=== PATIENT | female | born 1955 | race Caucasian/White ===

== ENCOUNTER 2016-08-17 15:54 | Emergency (ER) | payer OTHER ==
[2016-08-17 15:58] VITALS: PULSE 87; TEMP 98.1; BMI 21.6
[2016-08-17 16:14] VITALS: BP 148/99
--- NOTE | 2016-08-17 17:46 | PDOC ---
[id number] No Limitations - History of Present Illness Initial Comments: 08/17/16 18:30 The patient is a 60 year old female, with a significant past medical history of a heart murmur and sciatica, who presents to the emergency department with left knee pain about 2 weeks. The patient reports she slipped and fell while at work landing on her left side injuring her left knee and left hip. She reports that her left knee often radiates down her left leg into her foot resulting in LLE numbness and tingling. She report taking advil at 12:30pm with no alleviation. She reports her pain is often made worse with weight bearing activity, like stair climbing/descending. She denies chest pain and shortness of breath. She denies fever, chills, headache and dizziness. She denies nausea, vomit, diarrhea and constipation. She denies dysuria, frequency, urgency and hematuria. Allergies: NKDA Past surgical history: denies Social history: denies EtOH use, tobacco use, drug use PCP: <Joaquim Mccabe - Last Filed: 08/17/16 18:30> <Renny Hooper - Last Filed: 08/22/16 08:34> - General Chief Complaint: Injury Stated Complaint: LEFT KNEE, HIP PAIN Time Seen by Provider: 08/17/16 17:41 Past History <Joaquim Mccabe - Last Filed: 08/17/16 18:30> - Past Medical History Anemia: (OCCASIONAL BRONCHITIS WITH WHEEZING) Asthma: No Cancer: No Cardiac Disorders: Yes (HEART MURMUR) CVA: No COPD: No CHF: No Dementia: No Diabetes: No GI Disorders: Yes (bloating/epigastric pain) Disorders: No HTN: No Hypercholesterolemia: No Liver Disease: No Seizures: No Thyroid Disease: No - Surgical History Abdominal Surgery: No Appendectomy: No Cardiac Surgery: No Cholecystectomy: No Lung Surgery: No Neurologic Surgery: No Orthopedic Surgery: No - Psycho/Social/Smoking Cessation Hx Anxiety: No Suicidal Ideation: No Smoking History: Current some day smoker Have you smoked in the past 12 months: Yes Number of Cigarettes Smoked Daily: 10 Information on smoking cessation initiated: Yes 'Breaking Loose' booklet given: 08/17/16 Hx Alcohol Use: Yes (OCCASIONAL WINE) Drug/Substance Use Hx: No Substance Use Type: Alcohol Hx Substance Use Treatment: No <Renny Hooper - Last Filed: 08/22/16 08:34> - Past Medical History Allergies/Adverse Reactions: Allergies Allergy/AdvReac Type Severity Reaction Status Date / Time shellfish derived Allergy Intermediate Hives Verified 08/17/16 15:55 Trauma Specific PMHX - Complaint Specific PMHX Arthritis: No Back Injury: Yes Neck Injury: No Hx Sacro Iliac Joint Dysfunction: No <Renny Hooper - Last Filed: 08/22/16 08:34> Review of Systems - Review of Systems Able to Perform ROS?: Yes Comments:: 08/17/16 18:31 CONSTITUTIONAL: Absent: fever, chills, diaphoresis, generalized weakness, malaise, loss of appetite HEENT: Absent: rhinorrhea, nasal congestion, throat pain, throat swelling, difficulty swallowing, mouth swelling, ear pain, eye pain, visual Changes CARDIOVASCULAR: Absent: chest pain, syncope, palpitations, irregular heart rate, lightheadedness , peripheral edema RESPIRATORY: Absent: cough, shortness of breath, dyspnea with exertion, orthopnea, wheezing, stridor, hemoptysis GASTROINTESTINAL: Absent: abdominal pain, abdominal distension, nausea, vomiting, diarrhea, constipation, melena, hematochezia GENITOURINARY: Absent: dysuria, frequency, urgency, hesitancy, hematuria, flank pain, genital pain MUSCULOSKELETAL: Present: Left knee pain. Absent: myalgia, arthralgia, joint swelling SKIN: Absent: rash, itching, pallor HEMATOLOGIC/IMMUNOLOGIC: Absent: easy bleeding, easy bruising, lymphadenopathy, frequent infections ENDOCRINE: Absent: unexplained weight gain, unexplained weight loss, heat intolerance, cold intolerance NEUROLOGIC: Absent: headache, focal weakness or paresthesias, dizziness, unsteady gait, seizure, mental status changes, bladder or bowel incontinence PSYCHIATRIC: Absent: anxiety, depression, suicidal or homicidal ideation, hallucinations. <Joaquim Mccabe - Last Filed: 08/17/16 18:30> *Physical Exam - Vital Signs Last Vital Signs Temp Pulse Resp BP Pulse Ox 98.1 F 87 18 148/99 99 08/17/16 15:55 08/17/16 15:55 08/17/16 15:55 08/17/16 15:55 08/17/16 15:55 <Joaquim Mccabe - Last Filed: 08/17/16 18:30> - Vital Signs Last Vital Signs Temp Pulse Resp BP Pulse Ox 98.1 F 87 18 148/99 99 08/17/16 15:55 08/17/16 15:55 08/17/16 15:55 08/17/16 15:55 08/17/16 15:55 <Renny Hooper - Last Filed: 08/22/16 08:34> Medical Decision Making - Medical Decision Making 08/22/16 08:33 Exam shows no abnormalities. Other than mild synovial thickening of the left knee. There are no demonstrable sensory or motor deficits and gait is stable and unimpaired. Probable mild arthritis of the left knee. X-rays negative. X-ray of hip is negative as well. Adiel bandage applied. Rest ice elevation and anti-inflammatory. Orthopedic follow -up as directed. Patient fully ambulatory and in no significant pain or distress upon discharge to follow up as directed <Renny Hooper - Last Filed: 08/22/16 08:34> *DC/Admit/Observation/Transfer - Attestations Scribe Attestion: 08/17/16 17:46 Documentation prepared by Joaquim Mccabe, acting as medical collections specialist for Renny Milner MD. <Joaquim Mccabe - Last Filed: 08/17/16 18:30> - Discharge Dispostion Admit: No <Renny Hooper - Last Filed: 08/22/16 08:34> Diagnosis at time of Disposition: Knee strain Qualifiers: Encounter type: initial encounter Laterality: left Qualified Code(s): S86.912A - Strain of unspecified muscle(s) and tendon(s) at lower leg level, left leg, initial encounter - Discharge Dispostion Disposition: HOME Condition at time of disposition: Stable - Referrals Referrals: Pa Kincaid MD [Primary Care Provider] - 1 week - Patient Instructions Printed Discharge Instructions: DI for Knee Sprain Additional Instructions: Rest, ice, Advil, Adiel bandage. Avoid prolonged standing or walking. See orthopedist for further evaluation and treatment if no improvement - Post Discharge Activity Work/School Note: Back to Work
== END 2016-08-17 18:56 | disposition home or self-care (01) ==
LOC: FER 15:54
DX: S86.912A Strain of unspecified muscle(s) and tendon(s) at lower leg level, left leg, initial encounter (principal); W18.39XA Other fall on same level, initial encounter; Y93.9 Activity, unspecified; Y92.9 Unspecified place or not applicable; Y99.0 Civilian activity done for income or pay; R01.1 Cardiac murmur, unspecified; R10.13 Epigastric pain; F17.210 Nicotine dependence, cigarettes, uncomplicated
CPT/HCPCS: 73523-TC; 73560-TC-LT; 99283-25

== ENCOUNTER 2017-06-11 23:37 | Emergency (ER) | payer OTHER ==
--- NOTE | 2017-06-11 23:43 | PDOC ---
History of Present Illness - General Chief Complaint: Respiratory Stated Complaint: COUGH,CHILLS BODY ACHES Time Seen by Provider: 06/11/17 23:40 History Source: Patient Exam Limitations: No Limitations - History of Present Illness Initial Comments: 06/12/17 00:06 61y F hx of arthritis presents with complaint of cough. Pt states that since yesterday, she has been having some nasal congestion (clearish), feeling cold, L ear pain, cough productive of whitish sputum. She also endorses feeling generally weak and achy. She denies any recent travel, fevers, leg swelling, cp , abd pain, n/v. Past History - Past Medical History Allergies/Adverse Reactions: Allergies Allergy/AdvReac Type Severity Reaction Status Date / Time shellfish derived Allergy Intermediate Hives Verified 06/11/17 23:38 Home Medications: Ambulatory Orders Oseltamivir Phosphate [Tamiflu -] 75 mg PO BID #9 capsule 06/12/17 Anemia: (OCCASIONAL BRONCHITIS WITH WHEEZING) Asthma: No Cancer: No Cardiac Disorders: Yes (HEART MURMUR) CVA: No COPD: No CHF: No Dementia: No Diabetes: No GI Disorders: Yes (bloating/epigastric pain) Disorders: No HTN: No Hypercholesterolemia: No Liver Disease: No Seizures: No Thyroid Disease: No - Surgical History Abdominal Surgery: No Appendectomy: No Cardiac Surgery: No Cholecystectomy: No Lung Surgery: No Neurologic Surgery: No Orthopedic Surgery: No - Suicide/Smoking/Psychosocial Hx Smoking History: Current some day smoker Have you smoked in the past 12 months: Yes Number of Cigarettes Smoked Daily: 10 'Breaking Loose' booklet given: 08/17/16 Hx Alcohol Use: Yes (OCCASIONAL WINE) Drug/Substance Use Hx: No Substance Use Type: Alcohol Hx Substance Use Treatment: No Review of Systems - Review of Systems Able to Perform ROS?: Yes Comments:: 06/12/17 00:07 Constitutional - no reported Fever, Chills, HEENT: +congestion/L ear pain no reported vision changes, sore throat Respiratory: +cough, no reported sob, hemoptysis Cardiac: no reported chest pain, palpitations, light headedness, leg swelling Abd/GI: no reported abd pain, nausea, vomiting, blood per rectum, melena, diarrhea : no reported dysuria, frequency, discharge Musculskelatal - no reported back pain, joint swelling skin - no reported bruising, erythema, rash neurological: no reported headache, numbness, focal weakness, tingling, ataxia, hematologic: no reported anemia, easy bruising, easy bleeding *Physical Exam - Physical Exam Comments: 06/12/17 00:11 GENERAL: The patient is awake, alert, and fully oriented, Nontoxic - in no acute distress. HEAD: Normocephalic, atraumatic. EYES: extraocular movements intact, sclera anicteric, conjunctiva clear. ENT: Normal voice, Moist mucous membranes.posterior pharynx clear, TMs clear b/ l w/o erythema NECK: Normal range of motion, supple without signs of meningismus LUNGS: Breath sounds equal, clear to auscultation bilaterally. No wheezes, no rhonchi, no rales. HEART: Regular rate and rhythm, normal S1 and S2 without murmur, rub or gallop. ABDOMEN: Soft, nontender, normoactive bowel sounds. No guarding, no rebound. . No CVA tenderness EXTREMITIES: Normal range of motion, no edema. No clubbing or cyanosis. No cords, erythema, or tenderness. NEUROLOGICAL: No facial assymetry, Normal speech, PSYCH: Normal mood, normal affect. SKIN: Warm, Dry, normal turgor, Medical Decision Making - Medical Decision Making 06/12/17 00:12 suspect flu vs viral syndrome will give tamiflu and motrin will dc the pt with pmd fu return precautions were discussed will dc the pt to fu with dr kincaid as outpatient. I discussed the physical exam findings, ancillary test results and final diagnoses with the patient. I answered all of the patient's questions. The patient was satisfied with the care received and felt comfortable with the discharge plan and treatment plan. The patient will call their primary care physician within 24 hours to arrange follow-up and will return to the Emergency Department with any new, persistent or worsening symptoms. *DC/Admit/Observation/Transfer Diagnosis at time of Disposition: Flu-like symptoms - Discharge Dispostion Disposition: HOME Condition at time of disposition: Stable Admit: No - Prescriptions Prescriptions: Oseltamivir Phosphate [Tamiflu -] 75 mg PO BID #9 capsule - Referrals Referrals: Pa Kincaid MD [Primary Care Provider] - - Patient Instructions Printed Discharge Instructions: DI for Viral Syndrome Additional Instructions: Return to the emergency department immediately with ANY new, persistent or worsening symptoms including any shortness of breath, chest pain or other concerns. Take ibuprofen or tylenol for body aches. Take tamiflu as prescribed. You MUST call and follow up with your doctor in 2-3 days for further evaluation of your symptoms. Results were discussed with you. Please make sure your doctor reviews the results of your emergency evaluation. Print Language: [place]ET[place]ESE
[2017-06-11 23:48] VITALS: BP 156/90; PULSE 92; TEMP 100; BMI 26.5
[2017-06-12] MEDS ORDERED: OSELTAMIVIR PHOSPHATE 75 MG CAPSULE PO ONE (00:02)
[2017-06-12] MEDS ORDERED: IBUPROFEN 400 MG TABLET (FP) PO ONE ×2 (00:02→00:08)
[2017-06-12] MEDS ORDERED: OSELTAMIVIR PHOSPHATE 75 MG CAPSULE ONE (00:09)
== END 2017-06-12 00:17 | disposition home or self-care (01) ==
LOC: FER 23:37
DX: J11.1 Influenza due to unidentified influenza virus with other respiratory manifestations (principal); F17.210 Nicotine dependence, cigarettes, uncomplicated
CPT/HCPCS: 99281-25

== ENCOUNTER 2017-06-30 12:54 | Emergency (ER) | payer OTHER ==
[2017-06-30 13:00] VITALS: BP 157/96; PULSE 80; TEMP 98.4; BMI 26.5
--- NOTE | 2017-06-30 13:21 | PDOC ---
History of Present Illness - General Chief Complaint: Eye Problem Stated Complaint: REDNESS TO RIGHT LOWER EYE LID Time Seen by Provider: 06/30/17 12:57 History Source: Patient Exam Limitations: No Limitations - History of Present Illness Initial Comments: 61 yo F presents with R lower eyelid swelling x2 days. She states that it started with pain, then she noticed mild swelling. Now the swelling has spread to just above her cheek. She notes some swelling to the same. No fever. No drainage from the eye, no redness of the eye itself. No crusting. Denies prior similar symptoms. Her sister placed allergy drops yesterday without relief. Past History - Past Medical History Allergies/Adverse Reactions: Allergies Allergy/AdvReac Type Severity Reaction Status Date / Time iodine Allergy Intermediate Hives Verified 06/30/17 12:56 shellfish derived Allergy Intermediate Hives Verified 06/11/17 23:38 Home Medications: Ambulatory Orders Cephalexin Monohydrate [Keflex -] 500 mg PO BID #14 capsule 06/30/17 Anemia: (OCCASIONAL BRONCHITIS WITH WHEEZING) Asthma: No Cancer: No Cardiac Disorders: Yes (HEART MURMUR) CVA: No COPD: No CHF: No Dementia: No Diabetes: No GI Disorders: Yes (bloating/epigastric pain) Disorders: No HTN: No Hypercholesterolemia: No Liver Disease: No Seizures: No Thyroid Disease: No - Surgical History Abdominal Surgery: No Appendectomy: No Cardiac Surgery: No Cholecystectomy: No Lung Surgery: No Neurologic Surgery: No Orthopedic Surgery: No - Suicide/Smoking/Psychosocial Hx Smoking History: Current every day smoker Have you smoked in the past 12 months: Yes Number of Cigarettes Smoked Daily: 20 Information on smoking cessation initiated: Yes 'Breaking Loose' booklet given: 08/17/16 Hx Alcohol Use: No Drug/Substance Use Hx: No Substance Use Type: Alcohol Hx Substance Use Treatment: No Review of Systems - Review of Systems Able to Perform ROS?: Yes Comments:: GENERAL/CONSTITUTIONAL: No fever or chills. No weakness. HEAD, EYES, EARS, NOSE AND THROAT: No change in vision. No ear pain or discharge. No sore throat. +R lower eyelid swelling. SKIN: No rash ALLERGIC/IMMUNOLOGIC: No hives or skin allergy. *Physical Exam - Vital Signs Last Vital Signs Temp Pulse Resp BP Pulse Ox 98.4 F 80 16 157/96 100 06/30/17 12:55 06/30/17 12:55 06/30/17 12:55 06/30/17 12:55 06/30/17 12:55 - Physical Exam Comments: GENERAL: Awake, alert, and fully oriented, in no acute distress HEAD: No signs of trauma EYES: PERRLA, EOMI, sclera anicteric, conjunctiva clear. R lower lid with mild swelling that extends to just above the cheek. Mucosal surface of the R lower lid +chalazion. ENT: Auricles normal inspection, hearing grossly normal, nares patent, oropharynx clear without exudates. Moist mucosa SKIN: Warm, Dry, normal turgor, no rashes or lesions noted. Medical Decision Making - Medical Decision Making 06/30/17 13:32 Swelling to the lower lid extending to the cheek, with mild erythema. Will treat with warm compresses and keflex. Ophtho f/u. *DC/Admit/Observation/Transfer Diagnosis at time of Disposition: Chalazion of right lower eyelid - Discharge Dispostion Disposition: HOME Condition at time of disposition: Stable Admit: No - Prescriptions Prescriptions: Cephalexin Monohydrate [Keflex -] 500 mg PO BID #14 capsule - Referrals - Patient Instructions Printed Discharge Instructions: DI for Chalazion, Smoking Cessation Additional Instructions: Use warm compress as directed- Heat a piece of potato in the microwave. Wrap in paper towel, then apply to the outside of the lower lid for 10-15 minutes, 4 times per day. - Post Discharge Activity
[2017-06-30] MEDS ORDERED: CEPHALEXIN MONOHYDRATE 500 MG CAPSULE (UD) PO ONE (13:24)
[2017-06-30] MEDS ORDERED: CEPHALEXIN MONOHYDRATE 500 MG CAPSULE (UD) ONE (13:35)
[2017-06-30] MEDS ORDERED: RANITIDINE HCL 150 MG TABLET (FP) PO ONE (13:46)
== END 2017-06-30 13:52 | disposition home or self-care (01) ==
LOC: FER 12:54
DX: H00.12 Chalazion right lower eyelid (principal); F17.210 Nicotine dependence, cigarettes, uncomplicated; Z91.048 Other nonmedicinal substance allergy status; Z91.013 Allergy to seafood
CPT/HCPCS: 99281-25

== ENCOUNTER 2018-01-08 16:50 | Emergency (ER) | payer OTHER ==
--- NOTE | 2018-01-08 16:59 | PDOC ---
History of Present Illness - General History Source: Patient Exam Limitations: No Limitations - History of Present Illness Initial Comments: 01/08/18 17:32 The patient is a 62 year old female with a significant past medical history of arthritis who presents to the ED, sent by PCP, for progressively worsening left groin pain for one week. Patients PCP sent the Patient to the ED to have a pelvic ultrasound performed. Patient notes she recently had an abdominal ultrasound earlier today. Patient reports intermittent left groin pain for several years. She states she had an abdomen ultrasound performed 2 years ago to rule out hernia and it came back normal. 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 Denies fever or chills. Denies nausea or vomiting. Denies chest pain or shortness of breath. Denies any other symptoms. PCP: Dr. Mcgovern <Pia Cortez - Last Filed: 01/08/18 17:32> <Alessio Duckworth - Last Filed: 01/08/18 18:07> - General Chief Complaint: Pain Stated Complaint: SENT TO ER FOR ULTRASOUND LEFT GROIN Time Seen by Provider: 01/08/18 16:58 Past History <Pia Cortez - Last Filed: 01/08/18 17:32> - Past Medical History Anemia: (OCCASIONAL BRONCHITIS WITH WHEEZING) Asthma: No Cancer: No Cardiac Disorders: Yes (HEART MURMUR) CVA: No COPD: No CHF: No Dementia: No Diabetes: No GI Disorders: Yes (bloating/epigastric pain) Disorders: No HTN: No Hypercholesterolemia: No Liver Disease: No Seizures: No Thyroid Disease: No - Surgical History Abdominal Surgery: No Appendectomy: No Cardiac Surgery: No Cholecystectomy: No Lung Surgery: No Neurologic Surgery: No Orthopedic Surgery: No - Suicide/Smoking/Psychosocial Hx Smoking History: Current every day smoker Have you smoked in the past 12 months: Yes Number of Cigarettes Smoked Daily: 20 'Breaking Loose' booklet given: 08/17/16 Hx Alcohol Use: No Drug/Substance Use Hx: No Substance Use Type: Alcohol Hx Substance Use Treatment: No <Alessio Duckworth - Last Filed: 01/08/18 18:07> - Past Medical History Allergies/Adverse Reactions: Allergies Allergy/AdvReac Type Severity Reaction Status Date / Time iodine Allergy Intermediate Hives Verified 01/08/18 16:53 shellfish derived Allergy Intermediate Hives Verified 01/08/18 16:53 Review of Systems - Review of Systems Able to Perform ROS?: Yes Comments:: 01/08/18 17:33 A complete review of 10 out of 10 review of systems is taken and is negative apart from what is previously mentioned below and in the HPI. <Pia Cortez - Last Filed: 01/08/18 17:32> *Physical Exam - Vital Signs Last Vital Signs Temp Pulse Resp BP Pulse Ox 97.4 F L 52 L 18 189/88 100 01/08/18 16:52 01/08/18 16:52 01/08/18 16:52 01/08/18 16:52 01/08/18 16:52 - Physical Exam Comments: 01/08/18 17:33 Vitals: Triage Vital signs reviewed General Appearance: no acute distress, well nourished well developed, Neck: Supple;No Nuchal rigidity Chest Wall: Nontender Cardiac: Regular rate and rhythm, no murmurs, no rubs, no gallops, Lungs: Clear to auscultation bilateral, good air movement bilaterally, Abdomen: mild bulge with cough, left ingunal region Soft, nondistended, normal bowel sounds, nontender to palpation Extremities: Full range of motion to all extremities, no cyanosis, clubbing, or edema Skin: Warm and dry, no rashes or lesions, no petechiae Psych: normal mood, normal affect <Pia Cortez - Last Filed: 01/08/18 17:32> Medical Decision Making - Medical Decision Making 01/08/18 17:33 The patient is a 62 year old female with a significant past medical history of arthritis who presents to the ED, sent by PCP, for left lower quadrant pain for 2 years. Will order a Pelvic US. <Pia Cortez - Last Filed: 01/08/18 17:32> - Medical Decision Making 01/08/18 18:07 Inguinal pain chronic several years worse after heavy lifting no obvious hernia on examination no obvious hernia on ultrasound official report pending. Patient will follow-up with surgery either tomorrow or next Sunday Findings, the need for follow-up and strict return instructions discussed with patient. <Alessio Duckworth - Last Filed: 01/08/18 18:07> *DC/Admit/Observation/Transfer - Attestations Scribe Attestion: 01/08/18 17:34 Documentation prepared by Pia Cortez, acting as claim review medical director for Alessio Duckworth MD <Pia Cortez - Last Filed: 01/08/18 17:32> - Discharge Dispostion Decision to Admit order: No <Alessio Duckworth - Last Filed: 01/08/18 18:07> Diagnosis at time of Disposition: Inguinal pain Qualifiers: Laterality: left Qualified Code(s): R10.32 - Left lower quadrant pain - Discharge Dispostion Condition at time of disposition: Stable - Referrals Referrals: Torsten Baca MD [Staff Physician] - - Patient Instructions Additional Instructions: Follow-up with Dr. Baca as scheduled. Please return to the emergency department for any severe persistent pain especially facility with fever vomiting or for any concerns. Follow-up with her primary care provider this week as well.
[2018-01-08 17:19] VITALS: BP 189/88; PULSE 52; TEMP 97.4; BMI 26.5
== END 2018-01-08 18:12 | disposition home or self-care (01) ==
LOC: FER 16:50
DX: R10.32 Left lower quadrant pain (principal); M19.90 Unspecified osteoarthritis, unspecified site; R01.1 Cardiac murmur, unspecified; F17.210 Nicotine dependence, cigarettes, uncomplicated
CPT/HCPCS: 76705; 99282-25

== ENCOUNTER 2018-04-27 13:34 | Emergency (ER) | payer OTHER ==
[2018-04-27] MEDS ORDERED: ALBUTEROL SO4 2.5/IPRATROPIUM 0.5 INH SOL 3 ML VIAL.NEB. NEB ONE ×2 (14:06→14:27)
--- NOTE | 2018-04-27 14:06 | PDOC ---
History of Present Illness - General Chief Complaint: Cold Symptoms Stated Complaint: COUGH Time Seen by Provider: 04/27/18 13:44 History Source: Patient Exam Limitations: No Limitations - History of Present Illness Initial Comments: 62 yo F presents with cough, chest discomfort for past week. She originally felt sinus pressure, now with cough that worsens with deep breath. +Subjective fever/chills. No leg swelling. No recent travel. Pt smokes daily. Past History - Past Medical History Allergies/Adverse Reactions: Allergies Allergy/AdvReac Type Severity Reaction Status Date / Time iodine Allergy Intermediate Hives Verified 04/27/18 13:36 shellfish derived Allergy Intermediate Hives Verified 04/27/18 13:36 Home Medications: Ambulatory Orders Azithromycin [Zithromax 250mg Tablets -] 250 mg PO UTDICT #6 tab 04/27/18 Asthma: No Cancer: No Cardiac Disorders: Yes (HEART MURMUR) CVA: No COPD: No CHF: No Dementia: No Diabetes: No GI Disorders: Yes (bloating/epigastric pain) Disorders: No HTN: No Hypercholesterolemia: No Liver Disease: No Seizures: No Thyroid Disease: No - Surgical History Abdominal Surgery: No Appendectomy: No Cardiac Surgery: No Cholecystectomy: No Lung Surgery: No Neurologic Surgery: No Orthopedic Surgery: No - Suicide/Smoking/Psychosocial Hx Smoking History: Current every day smoker Have you smoked in the past 12 months: Yes Number of Cigarettes Smoked Daily: 20 'Breaking Loose' booklet given: 08/17/16 Hx Alcohol Use: No Drug/Substance Use Hx: No Substance Use Type: Alcohol Hx Substance Use Treatment: No Review of Systems - Review of Systems Able to Perform ROS?: Yes Comments:: GENERAL/CONSTITUTIONAL: No fever or chills. No weakness. HEAD, EYES, EARS, NOSE AND THROAT: No change in vision. No ear pain or discharge. No sore throat. CARDIOVASCULAR: No chest pain or shortness of breath. RESPIRATORY: +Cough. No wheezing or hemoptysis. GASTROINTESTINAL: No nausea, vomiting, diarrhea or constipation. GENITOURINARY: No dysuria, frequency, or change in urination. MUSCULOSKELETAL: No joint or muscle swelling or pain. No neck or back pain. SKIN: No rash NEUROLOGIC: No headache, vertigo, loss of consciousness, or change in strength/ sensation. ENDOCRINE: No increased thirst. No abnormal weight change. HEMATOLOGIC/LYMPHATIC: No anemia, easy bleeding, or history of blood clots. ALLERGIC/IMMUNOLOGIC: No hives or skin allergy. *Physical Exam - Physical Exam Comments: GENERAL: Awake, alert, and fully oriented, in no acute distress HEAD: No signs of trauma EYES: PERRLA, EOMI, sclera anicteric, conjunctiva clear ENT: Auricles normal inspection, hearing grossly normal, nares patent, oropharynx clear without exudates. Moist mucosa NECK: Normal ROM, supple, no lymphadenopathy, JVD, or masses LUNGS: Breath sounds equal, good air entry B/L. +Scattered rhonchi B/L. Intermittent hacking cough. HEART: Regular rate and rhythm, normal S1 and S2, no murmurs, rubs or gallops ABDOMEN: Soft, nontender, normoactive bowel sounds. No guarding, no rebound. No masses EXTREMITIES: Normal range of motion, no edema. No clubbing or cyanosis. No cords, erythema, or tenderness NEUROLOGICAL: Cranial nerves II through XII grossly intact. Normal speech, normal gait SKIN: Warm, Dry, normal turgor, no rashes or lesions noted. Medical Decision Making - Medical Decision Making Will treat with azithromycin as patient is an active smoker. *DC/Admit/Observation/Transfer Diagnosis at time of Disposition: Bronchitis - Discharge Dispostion Disposition: HOME Condition at time of disposition: Stable Decision to Admit order: No - Prescriptions Prescriptions: Azithromycin [Zithromax 250mg Tablets -] 250 mg PO UTDICT #6 tab - Referrals - Patient Instructions Printed Discharge Instructions: DI for Acute Bronchitis - Post Discharge Activity
[2018-04-27 14:35] VITALS: BP 150/95; PULSE 71; TEMP 98.3; BMI 27.4
== END 2018-04-27 15:17 | disposition home or self-care (01) ==
LOC: FER 13:34
PROC: 3E0F7GC Introduction of Other Therapeutic Substance into Respiratory Tract, Via Natural or Artificial Opening (ICD-10-PCS; principal; 2018-04-27)
DX: J40 Bronchitis, not specified as acute or chronic (principal)
CPT/HCPCS: 94640; 99282-25; J7620

== ENCOUNTER 2018-09-20 15:02 | Emergency (ER) | payer OTHER ==
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
[2018-09-20 15:16] VITALS: BP 150/89; PULSE 75; TEMP 98.1; BMI 27.4
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
== END 2018-09-20 16:23 | disposition home or self-care (01) ==
LOC: FER 15:02
DX: M79.603 Pain in arm, unspecified (principal); M54.2 Cervicalgia; G89.29 Other chronic pain; R20.2 Paresthesia of skin; K21.9 Gastro-esophageal reflux disease without esophagitis; R01.1 Cardiac murmur, unspecified; F17.210 Nicotine dependence, cigarettes, uncomplicated; Z91.013 Allergy to seafood
CPT/HCPCS: 99281-25

== ENCOUNTER 2019-05-12 18:25 | Emergency (ER) | payer OTHER ==
[2019-05-12 19:02] VITALS: BP 171/91; PULSE 81; TEMP 99.3; BMI 25.9
[2019-05-12] MEDS ORDERED: ALBUTEROL SO4 2.5/IPRATROPIUM 0.5 INH SOL 3 ML VIAL.NEB. NEB ONE ×2 (19:34)
[2019-05-12] MEDS ORDERED: AMOX TR/POT CLAV 875MG/125MG TABLETS (FP) PO ONE (19:41)
[2019-05-12] MEDS ORDERED: AMOX TR/POT CLAV 875MG/125MG TABLETS (FP) ONE (19:42)
--- NOTE | 2019-05-12 20:25 | PDOC ---
Documentation entered by Ty Paul SCRIBE, acting as scribe for Phyllis Diaz MD. Phyllis Diaz MD: This documentation has been prepared by the Humberto white Aiswarya, SCRIBE, under my direction and personally reviewed by me in its entirety. I confirm that the documentation accurately reflects all work, treatment, procedures, and medical decision making performed by me. History of Present Illness - General Chief Complaint: Respiratory Stated Complaint: COUGH History Source: Patient Exam Limitations: No Limitations - History of Present Illness Initial Comments: 05/12/19 20:09 The patient is a 63 year old female, with a significant PMH of occasional bronchitis with wheezing and heart murmur who presents to the emergency department today constant productive cough that began yesterday. The patient states she endorses associated symptoms of SOB, burning throat, nasal congestion and sinus issues. She also mentions she coughed up a copious amount of mucus today. The patient denies headache and dizziness.Denies fever, chills, nausea, vomit, diarrhea and constipation. Allergies: NKDA Past surgical history: None reported Social history: quit smoking 2 days ago Past History - Past Medical History Allergies/Adverse Reactions: Allergies Allergy/AdvReac Type Severity Reaction Status Date / Time iodine Allergy Intermediate Hives Verified 05/12/19 18:28 shellfish derived Allergy Intermediate Hives Verified 05/12/19 18:28 Home Medications: Ambulatory Orders Amoxicillin/Potassium Clav [Augmentin 875-125 Tablet] 1 each PO BID #20 tablet 05/12/19 Guaifenesin [Mucinex -] 600 mg PO BID #14 tablet.er 05/12/19 Oxymetazoline 0.05% Nasal Soln [Afrin -] 2 spray NS BID #1 spraybtl 05/12/19 Anemia: (OCCASIONAL BRONCHITIS WITH WHEEZING) Asthma: No Cancer: No Cardiac Disorders: Yes (HEART MURMUR) CVA: No COPD: No CHF: No Dementia: No Diabetes: No GI Disorders: Yes (bloating/epigastric pain) Disorders: No HTN: No Hypercholesterolemia: No Liver Disease: No Seizures: No Thyroid Disease: No - Surgical History Abdominal Surgery: No Appendectomy: No Cardiac Surgery: No Cholecystectomy: No Lung Surgery: No Neurologic Surgery: No Orthopedic Surgery: No - Immunization History Immunization Up to Date: Yes - Psycho Social/Smoking Cessation Hx Smoking History: Never smoked Have you smoked in the past 12 months: No Number of Cigarettes Smoked Daily: 20 If you are a former smoker, when did you quit?: 20 Information on smoking cessation initiated: No 'Breaking Loose' booklet given: 04/27/18 Hx Alcohol Use: No Drug/Substance Use Hx: No Substance Use Type: Alcohol Hx Substance Use Treatment: No Review of Systems - Review of Systems Able to Perform ROS?: Yes Comments:: 05/12/19 20:09 GENERAL/CONSTITUTIONAL: No fever or chills. No weakness. HEAD, EYES, EARS, NOSE AND THROAT: +sore throat. No change in vision. No ear pain or discharge. CARDIOVASCULAR: +SOB. No chest pain. RESPIRATORY:+Cough. No wheezing, or hemoptysis. GASTROINTESTINAL: No nausea, vomiting, diarrhea or constipation. GENITOURINARY: No dysuria, frequency, or change in urination. MUSCULOSKELETAL: No joint or muscle swelling or pain. No neck or back pain. SKIN: No rash NEUROLOGIC: No headache, vertigo, loss of consciousness, or change in strength/ sensation. ENDOCRINE: No increased thirst. No abnormal weight change. HEMATOLOGIC/LYMPHATIC: No anemia, easy bleeding, or history of blood clots. ALLERGIC/IMMUNOLOGIC: No hives or skin allergy. *Physical Exam - Vital Signs Last Vital Signs Temp Pulse Resp BP Pulse Ox 99.3 F 81 20 171/91 H 97 05/12/19 18:27 05/12/19 18:27 05/12/19 18:27 05/12/19 18:27 05/12/19 18:27 - Physical Exam Comments: 05/12/19 20:10 GENERAL: The patient is in no acute distress. HEAD: Normal EYES: PERRLA, EOMI, sclera anicteric, conjunctiva clear. ENT:+nasal congestion and facial tenderness. Ears normal, oropharynx clear without exudates. NECK: Normal range of motion, supple LUNGS: Breath sounds equal, clear to auscultation bilaterally. No wheezes, and no crackles. HEART:Regular rate and rhythm, normal S1 and S2 without murmur, rub or gallop. EXTREMITIES: Normal range of motion, no edema. No clubbing or cyanosis. No erythema, or tenderness. NEUROLOGICAL: Cranial nerves II through XII grossly intact. Normal speech. No focal neurological deficits. SKIN: Warm, Dry, normal turgor, no rashes or lesions noted. ED Treatment Course - Medications Given in the ED: ED Medications Discontinued Medications Generic Name Dose Route Start Last Admin Trade Name Fran PRN Reason Stop Dose Admin Albuterol/Ipratropium 1 amp 05/12/19 19:34 05/12/19 19:37 Duoneb - NEB 05/12/19 19:35 1 amp ONCE ONE Administration Amoxicillin/Clavulanate Potassium 1 tab 05/12/19 19:41 05/12/19 19:45 Augmentin - 875mg Tablet PO 05/12/19 19:42 1 tab ONCE ONE Administration Medical Decision Making - Medical Decision Making 05/12/19 19:54 Ruchi is a 63-year-old female with a history of tobacco use, bronchitis, sinusitis presents emergency department with a complaint of cough, runny nose, sinus congestions consistent subjective fevers She denies chest pain. She has noted very thick phlegm which she feels gets stuck in her throat. Her rhinorrhea is clear fluid. Cough is nonproductive. Present for a few days. Performed, reveals no consolidation, no effusion, no pneumothorax Although this patient no longer smokes, she does have a history of severe sinus infections will give antibiotics for her sinus congestion as well as Mucinex. Patient has a follow-up appointment with her primary care physician tomorrow. Clinical impression: Sinusitis, initial presentation Chronic cough, initial presentation Discharge - Discharge Information Problems reviewed: Yes Clinical Impression/Diagnosis: Bronchitis Sinusitis Qualifiers: Sinusitis location: maxillary Chronicity: acute Recurrence: non-recurrent Qualified Code(s): J01.00 - Acute maxillary sinusitis, unspecified Condition: Stable Disposition: HOME - Admission No - Additional Discharge Information Health Concerns: Cough and Sinus pressure Goals: Continue Smoking Cessation Treating acute infection Plan of Treatment: Abx Decongestant Prescriptions: Amoxicillin/Potassium Clav [Augmentin 875-125 Tablet] 1 each PO BID #20 tablet Guaifenesin [Mucinex -] 600 mg PO BID #14 tablet.er Oxymetazoline 0.05% Nasal Soln [Afrin -] 2 spray NS BID #1 spraybtl Prescription Drug Monitoring Program (I-STOP) results: I-STOP not reviewed - Follow up/Referral - Patient Discharge Instructions Patient Printed Discharge Instructions: Sinusitis (Alternative Therapy), DI for Sinusitis, DI for Acute Bronchitis Additional Instructions: Return to the emergency department immediately with ANY new, persistent or worsening symptoms. Continue any medications as previously prescribed by your physician. I have prescribed Augmentin, Mucinex and Afrin (for 3 days only) You should follow up with your primary doctor as soon as possible regarding today's emergency department visit. Please make sure your doctor reviews the results of your emergency evaluation. Thank you for coming to the [facility] today for your care. It was a pleasure to see you today. Please note that your evaluation is INCOMPLETE until you follow-up with your doctor. - Post Discharge Activity Work/Back to School Note: Back to Work
== END 2019-05-12 20:21 | disposition home or self-care (01) ==
LOC: FER 18:25
PROC: 3E0F7GC Introduction of Other Therapeutic Substance into Respiratory Tract, Via Natural or Artificial Opening (ICD-10-PCS; principal; 2019-05-12)
DX: J40 Bronchitis, not specified as acute or chronic (principal); J01.00 Acute maxillary sinusitis, unspecified
CPT/HCPCS: 71046-TC-FY; 94640; 99282-25

== ENCOUNTER 2020-08-09 20:46 | Emergency (ER) | payer OTHER ==
[2020-08-09 21:07] VITALS: BP 149/70; PULSE 80; TEMP 98; BMI 28.3
[2020-08-09] MEDS ORDERED: KETOROLAC TROMETHAMINE 60 MG/2 ML VIAL ONE (21:19)
[2020-08-09] MEDS ORDERED: KETOROLAC TROMETHAMINE 60 MG/2 ML VIAL IM ONE (21:21)
== END 2020-08-09 21:24 | disposition home or self-care (01) ==
LOC: FER 20:46
PROC: 3E0233Z Introduction of Anti-inflammatory into Muscle, Percutaneous Approach (ICD-10-PCS; principal; 2020-08-09)
DX: R52 Pain, unspecified (principal)
CPT/HCPCS: 99284-25

== ENCOUNTER 2021-01-30 22:40 | Emergency (ER) | payer OTHER ==
[2021-01-30 22:51] VITALS: BP 154/79; PULSE 73; TEMP 98; BMI 28.9
[2021-01-30] MEDS ORDERED: DIPHTH,PERTUSS(ACELL),TET 0.5 ML DISP.SYRIN IM ONE ×2 (23:40→23:41)
[2021-01-30] MEDS ORDERED: AMOX TR/POT CLAV 875MG/125MG TABLETS (FP) PO ONE (23:41)
[2021-01-30] MEDS ORDERED: AMOX TR/POT CLAV 875MG/125MG TABLETS (FP) ONE (23:42)
== END 2021-01-30 23:49 | disposition home or self-care (01) ==
LOC: FER 22:40
PROC: 3E0234Z Introduction of Serum, Toxoid and Vaccine into Muscle, Percutaneous Approach (ICD-10-PCS; principal; 2021-01-30)
DX: S61.252A Open bite of right middle finger without damage to nail, initial encounter (principal)
CPT/HCPCS: 90471; 90715; 99284-25

== ENCOUNTER 2023-11-20 04:33 | Day surgery (SDC) | payer OTHER ==
[2023-11-14 13:00] VITALS: BMI 31.1
[2023-11-20] MEDS ORDERED: LIDOCAINE HCL/PF 1% SDV 5ML VIAL ONE (07:16)
[2023-11-20] MEDS ORDERED: DEXAMETHASONE SOD PHOSPHATE 10 MG/1 ML VIAL ONE (07:16)
[2023-11-20 09:10] VITALS: RESP 18
[2023-11-20] MEDS: LIDOCAINE 1% P/F 10 MG/ML VIAL INF ONE ×2 (09:58→10:16)
[2023-11-20] MEDS: DEXAMETHASONE SOD PHOSPHATE 10 MG/1 ML VIAL IVPUSH ONE ×2 (09:59→10:18)
[2023-11-20] MEDS: IOHEXOL 180 MG/1 ML ML IJ ONE ×2 (09:59→10:18)
[2023-11-20 11:31] VITALS: BP 130/72; PULSE 80; TEMP 97.4
[2023-11-20] MEDS ORDERED: ACETAMINOPHEN 500 MG TABLET (FP) PO PRN (13:09)
== END 2023-11-20 11:25 | disposition home or self-care (01) ==
LOC: JASU-SURG 04:33
PROVIDERS: ATTEND Pain Medicine Pain Medicine
PROC: 3E0R3BZ Introduction of Anesthetic Agent into Spinal Canal, Percutaneous Approach (ICD-10-PCS; 2023-11-20)
PROC: 3E0R33Z Introduction of Anti-inflammatory into Spinal Canal, Percutaneous Approach (ICD-10-PCS; principal; 2023-11-20 10:15)
DX: M48.061 Spinal stenosis, lumbar region without neurogenic claudication (principal); M54.16 Radiculopathy, lumbar region
CPT/HCPCS: 76000-TC-FY; J1100